=== PATIENT | female | born 1960 | race Caucasian/White ===

== ENCOUNTER 2021-02-07 07:59 | Outpatient (CLI) | payer OTHER, SELFPAY ==
[2021-02-07 08:45] VITALS: BMI 23.3
--- NOTE | 2021-02-07 08:46 | NMCV_ITS ---
NM daniel perf SPECT r/s* [id number] Lurdes Vinson Age: 61 Gender: F : 1960 Exam Date: 02/07/2021 09:27 Ordering Phys: Erica Newton MD Technologist: YAMEL [place] Exam Location: [facility] Indications: SHORTNESS OF BREATH ON EXERTION STRESS TEST Please see separate stress test report in [facility] for full findings IMAGE PROTOCOL Rest/Stress 1 Exercise Day Radiopharmaceutical Dose (mCi) Administration Site Administered by Rest: Tc-99m 10.7 IV YAMEL [place] Sestamibi Stress:Tc-99m 32.6 IV YAMEL Scott Sestamibi Rest: 07-Feb-2021 60 Discovery 630 Stress: 07-Feb-2021 15 Discovery 630 Radiopharmaceutical was injected at 92 % maximum heart rate. Images obtained in supine and prone position. SPECT RESULTS Technical Quality: Excellent Raw Data Analysis: Normal Image Corrections: No attenuation or motion correction applied Summed Stress Score: 1 Summed Rest Score: 0 Summed Difference Score: 1 PERFUSION FINDINGS FUNCTIONAL RESULTS (calculated via Gated SPECT) Stress Image LV EF (%): 80 Stress EDV (mL):60 TID: 0.7 Stress ESV (mL):12 Rest Image LV EF (%): 80 FUNCTIONAL FINDINGS: There is normal left ventricular systolic function. IMPRESSIONS Myocardial perfusion imaging is normal and low probability for obstructuve CAD.EKG segment will be documented separately. Mary Anne Dowell MD (Electronically Signed) Final Date: 07 February 2021 14:41 S
--- NOTE | 2021-02-07 08:46 | ECG_ITS ---
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 Baseline heart rate was 63 beats per minute. Baseline blood pressure was 118/68 millimeters of mercury. Target heart rate was 157 beats per minute. Maximum heart rate achieved was 160, which was 101% of the target heart rate. Maximum blood pressure was 167/100 millimeters of mercury. Total exercise time was 10 minutes 28sec. Maximum METs achieved was 13.5, maximum VO2 was 47 point. The reason for ending the test was maximum effort achieved. The patient complained of during the stress test, which then resolved at the end of the test. ELECTROCARDIOGRAM: BASELINE: Showed sinus rhythm, left axis, incomplete right bundle branch block. EXERCISE: At the peak exercise level, no significant ST-T changes suggestive of ischemia noted. RECOVERY: During the recovery period, heart rate dropped appropriately. No significant ST-T changes in the recovery suggestive of ischemia noted. CONCLUSION: 1. Exercise capacity good. 2. Heart rate response was appropriate. 3. Blood pressure response was appropriate. 4. Symptoms not suggestive of ischemia. 5. Electrocardiogram portion of the stress test was not suggestive of ischemia. 6. Imaging portion will be documented separately. Electronically Signed On 02-07-2021 21:47:20 CDT by CATERINA MULTANI [id number]
[2021-02-07 10:57] VITALS: BP 171/83; PULSE 61
== END 2021-02-07 08:00 | disposition home or self-care (01) ==
PROVIDERS: PCP Family Medicine; Visit Provider Family Medicine
DX: R06.02 Shortness of breath (principal)
CPT/HCPCS: 78452; 93017; A9500